=== PATIENT | female | born 1940 | race Caucasian/White ===

== ENCOUNTER → 2020-11-14 | Outpatient (CLI) | payer MEDICARE, OTHER ==
[~2020-11-14] MED LIST: DETROL LA 4 MG C4 MG PO; ELIQUIS5 MG PO; KLONOPIN1 MG PO; NORVASC 5 MG TAB5 MG PO; OYSTER SHELL C1 EAC1 PO; RANITIDINE HCL150 M1 PO; SYNTHROID75 MCG PO; TOPROL XL50 MG PO; TRICOR145 MG PO; ZANAFLEX4 MG PO
== END ==
LOC: MAMO 10:32
DX: Z12.31 Encounter for screening mammogram for malignant neoplasm of breast (principal); Z90.12 Acquired absence of left breast and nipple
CPT/HCPCS: 77063; 77067

== ENCOUNTER → 2021-04-12 | Outpatient (CLI) | payer MEDICARE, OTHER | LOC: LBRF 16:48 | DX: R31.9 Hematuria, unspecified (principal) | CPT/HCPCS: 87077; 87086; 87186 ==

== ENCOUNTER → 2021-07-31 | Outpatient (CLI) | payer MEDICARE, OTHER | LOC: HEART 5 07-25 08:00 | DX: I48.21 Permanent atrial fibrillation (principal); I08.1 Rheumatic disorders of both mitral and tricuspid valves; I27.20 Pulmonary hypertension, unspecified | CPT/HCPCS: 93306 ==

== ENCOUNTER → 2022-03-01 | Outpatient (CLI) | payer MEDICARE, OTHER | LOC: MAMO 10:00 | DX: Z12.31 Encounter for screening mammogram for malignant neoplasm of breast (principal) | CPT/HCPCS: 77063; 77067 ==